=== PATIENT | female | born 2000 | race Caucasian/White ===

== ENCOUNTER → 2020-07-15 | Day surgery (SDC) | payer OTHER ==
[~2020-07-15] MED LIST: AUGMENTIN 875-1 EACH PO; BUSPIRONE HCL7.5 MG PO; EFFEXOR XR37.5 MG PO; TRAZODONE HCL150 MG PO; VOLTAREN **OUT50 MG PO; XULANE PATCH1 EACH TD
[2020-07-15 09:02] LABS: HCG (URINE) SCREEN NEGATIVE (NEGATIVE)
== END | disposition home or self-care (01) ==
LOC: FAS 08:03
PROVIDERS: Oral & Maxillofacial Surgery
DX: K02.9 Dental caries, unspecified (principal); K04.7 Periapical abscess without sinus; K01.1 Impacted teeth; Q87.0 Congenital malformation syndromes predominantly affecting facial appearance; F41.9 Anxiety disorder, unspecified; Z79.899 Other long term (current) drug therapy
CPT/HCPCS: 71045; 84703; 93005; J1100; J1170; J2250; J2405; J2704; J3010; J7120